=== PATIENT | male | born 1975 | race Caucasian/White ===

== ENCOUNTER 2016-10-22 13:38 | Inpatient (IN) | payer MEDICARE, OTHER ==
--- NOTE | ~2016-10-22 | HP ---
Unit #: [id number] #: [id number] Patient: NAEL DE JESUS [id number] [address] [place], [place] [address] [id number] I MR#: [id number] NAME: NAEL DE JESUS ROOM: 327 Age: 40 Sex: M Admission Date: 10/22/2016 : 1975 Attending Physician: Salo Smallwood M.D. Primary Care Physician: Chivo Guerrero M.D. HISTORY AND PHYSICAL HISTORY OF PRESENT ILLNESS A 40-year-old white male, alcoholic, tobacco use, COPD, hypertension, PSVT, CHF, nonischemic cardiomyopathy felt to be secondary to alcohol abuse, chronic hyponatremia. Seen in the emergency room with angioedema of the face felt to be secondary to lisinopril, which is discontinued. He was apparently switched to some other medicine, which remains unknown. He was then discharged home but came back on the with worsening symptoms, was given IV Solu-Medrol, IV Benadryl, IV Pepcid and admitted. Currently he states that he has really nonessential swelling, but he has gone into DT, which is common for the patient because he is a heavy alcoholic. Currently he has no other complaints. He is somewhat tremulous, is completely unaware of what blood pressure medications he is on at home other than lisinopril and Lopressor, Metoprolol, but his brother is supposed to bring his prescriptions in. ALLERGIES Lisinopril. MEDICATIONS Unknown. SURGICAL HISTORY Left hip replacement, right hip replacement. PAST MEDICAL HISTORY 1. Nonischemic cardiomyopathy with an ejection fraction of 20%, 2. CHF, systolic. 3. Chronic obstructive pulmonary disease. 4. Alcohol abuse. 5. History of alcohol withdrawal. 6. Tobacco use. 7. PSVT. 8. Hyponatremia. SOCIAL HISTORY He smokes 2 packs of cigarettes daily. Occasionally uses marijuana. Drinks beer daily but states that he drinks less than or equal to 12 beers a day. He apparently is on disability because of his hip surgery. PHYSICAL EXAMINATION GENERAL: On physical exam, he is awake, alert, oriented x3, somewhat tremulous, in no acute distress. ADMISSION VITALS: Afebrile. Pulse 102, respirations 20, blood pressure 155/99, O2 sat 97% on room air. Unit #: [id number] #: [id number] Patient: NAEL DE JESUS HEENT: Unremarkable, except for some mild facial edema, which is rather symmetrical and diffuse. NECK: Neck was supple without JVD, bruits, adenopathy or thyromegaly. CHEST: Diffusely decreased breath sounds with inspiratory and expiratory wheezes throughout. CARDIOVASCULAR: Heart has a regular rate and rhythm without any murmurs, rubs or gallops. ABDOMEN: Abdomen was soft, nondistended, nontender with positive bowel sounds and no hepatosplenomegaly. EXTREMITIES: Extremities showed no clubbing, cyanosis or edema. /RECTAL: Deferred. NEUROLOGIC: Exam is otherwise grossly intact. DIAGNOSTIC STUDIES LABORATORY VALUES: CBC is normal except for platelet count of 125,000 with an elevated MCV. CMP is normal except for sodium of 129, an AST of 160, an ALT of 128, alkaline phosphatase of 180, total protein of 8.5. PFTs were within normal limits. IMPRESSION 1. Angioedema secondary to EILEEN inhibitor. 2. Alcohol withdrawal. 3. Alcohol abuse. 4. Hypertension. 5. Tobacco use. 6. COPD. 7. Nonischemic cardiomyopathy. 8. PSVT. 9. Alcoholic hepatitis. 10. Thrombocytopenia. 11. Hyponatremia. PLAN DT withdrawal precautions and treatment. Resume antihypertensives. Clarify home meds. Continue IV steroids, IV Benadryl and H2 blockers and quickly wean as appropriate. Dictated by Kennedy Tomas/jaja TD: 10/23/2016 07:50 JOB #: [id number] HISTORY AND PHYSICAL Page 1 of 1 X Salo Smallwood MD X HISTORY AND PHYSICAL
--- NOTE | ~2016-10-22 | DS ---
Unit #: [id number] #: [id number] Patient: NAEL DE JESUS [id number] [address] [place], [place] [address] [id number] I MR#: [id number] NAME: NAEL DE JESUS ROOM: [facility] Age: 40 Sex: M Admission Date: 10/22/2016 : 1975 Discharge Date: 10/24/2016 Attending Physician: Salo Smallwood M.D. Primary Care Physician: Chivo Guerrero M.D. DISCHARGE SUMMARY PRINCIPAL DISCHARGE DIAGNOSES 1. Angioedema of the face, likely secondary to angiotensin-converting enzyme inhibitor. 2. Chronic hyponatremia. 3. Alcohol abuse with evidence of withdrawal. 4. Nonischemic cardiomyopathy. 5. Hypertension. 6. Tobacco use. 7. Chronic obstructive pulmonary disease. 8. History of paroxysmal supraventricular tachycardia. 9. Alcoholic hepatitis. 10. Transient thrombocytopenia. PROCEDURES None. CONSULTANTS None. REASON FOR HOSPITALIZATION/HOSPITAL COURSE The patient is a 40-year-old white male, alcoholic, who smokes, has COPD, hypertension, PSVT, CHF, nonischemic cardiomyopathy, chronic hyponatremia. Presented to the emergency room with angioedema of the face, felt to be secondary to lisinopril, which was discontinued. He was sent home with some steroids but soon came back to the emergency room with worsening symptoms and was admitted. He was started on IV Solu-Medrol, Benadryl and Pepcid and admitted. His angioedema quickly (1) . He had some sinus tachycardia and hypertension. His CBC on admission was normal except for a platelet count of 125, then on repeat this morning it was normal. His sodium was 129 and this morning is up to 131. He had some elevated LFTs consistent with alcoholic hepatitis. PFTs were checked and within normal limits. The patient's angioedema is resolved. His blood pressure is somewhat labile but can be addressed outpatient. DISCHARGE DIET He is on a regular diet. DISCHARGE MEDICATIONS 1. He is being discharged home with a Medrol Dosepak. 2. He is to take Benadryl 25 mg p.o. q.6 hours p.r.n. additional swelling. 3. He is also on Claritin 10 mg daily. 4. Toprol XL 50 mg daily. 5. Lasix 20 mg b.i.d. Unit #: [id number] #: [id number] Patient: NAEL DE JESUS 6. Aldactone 25 mg daily. NOTE: His HCTZ was discontinued because of hyponatremia, and of course, he is off his EILEEN inhibitor. FOLLOW-UP/RECOMMENDATION He will follow up with Dr. Guerrero in 1 week. He was encouraged again to discontinue his tobacco and alcohol use. Dictated by... Salo Smallwood M.D. LINNETTE/jaja TD: 10/24/2016 11:38 JOB #: [id number] DISCHARGE SUMMARY Page 1 of 1 X Salo Smallwood MD X DISCHARGE SUMMARY
[~2016-10-22 13:38] MED LIST: AL-MAG HYDROX-S30 M1 PO; ALDACTONE PO; ASPIRIN81 MG PO; ATENOLOL PO; CIPRO PO; COMBIVENT MININEB INH; CORDARONE200 M1 PO; DELTASONE20 MG; GUAIFENESIN600 M1 PO; KCL PO; LASIX PO; LASIX20 MG PO; LEVAQUIN PO; LISINOPRIL PO; LISINOPRIL10 MG PO; LOPRESSOR; MULTI VITAMIN1 EACH PO; NO MEDICATIONS; SIMVASTATIN10 MG PO; SINGULAIR PO; SYMBICORT INH; ZOCOR PO
[2016-10-22 14:21] LABS: BASOPHIL% 0.7 % (0-2.5); HEMATOCRIT 45.5 % (38.0-50.0); HEMOGLOBIN 15.5 gm/dL (13.0-16.0); LYMPHOCYTE# 0.4 X10e3 (1.0-3.5); LYMPHOCYTE% 13.9 % (17.0-45.0); MEAN CELL VOLUME 104.6 FL (83-96); MEAN CORPUSCULAR HEMOGLOBIN 35.7 PG (28-34); MEAN CORPUSCULAR HGB CONC 34.1 g/dL (30-36); MEAN PLATELET VOLUME 8.8 FL (6.5-11.5); MONOCYTE# 0.1 X10e3 (0-1.0); NEUTROPHIL# 2.6 X10e3 (1.5-7.1); NEUTROPHIL% 83.4 % (40-75); PLATELET COUNT 131 X10e3 (140-420); RED BLOOD COUNT 4.35 X10e (3.90-5.60); RED CELL DISTRIBUTION WIDTH 13.7 % (11.0-15.5); WHITE BLOOD COUNT 3.1 X10e3 (4.0-10.5)
[2016-10-22 14:22] LABS: DIFF IND NO
[2016-10-22 14:46] LABS: ALBUMIN SERUM 4.2 g/dL (3.5-5.0); BILIRUBIN, DIRECT 0.1 mg/dL (0.0-0.2); BILIRUBIN,INDIRECT 0.5 mg/dL (0.0-0.9); BILIRUBIN,TOTAL 0.6 mg/dL (0.2-2.0); BUN/CREATININE RATIO 12.5; CALCIUM SERUM 9.5 mg/dL (8.4-10.2); CREATININE SERUM 0.8 mg/dL (0.6-1.4); GLOM FILT RATE Estimated 112.6 mL/min (>60); POTASSIUM 3.8 mmol/L (3.5-5.1); PROTEIN TOTAL SERUM 8.4 g/dL (6.0-8.3)
[2016-10-23 05:39] LABS: BASOPHIL% 0.1 % (0-2.5); EOSINOPHIL% 0.2 % (0.0-7.0); HEMATOCRIT 45.8 % (38.0-50.0); HEMOGLOBIN 15.4 gm/dL (13.0-16.0); LYMPHOCYTE# 0.5 X10e3 (1.0-3.5); LYMPHOCYTE% 6.7 % (17.0-45.0); MEAN CELL VOLUME 104.8 FL (83-96); MEAN CORPUSCULAR HEMOGLOBIN 35.2 PG (28-34); MEAN CORPUSCULAR HGB CONC 33.6 g/dL (30-36); MEAN PLATELET VOLUME 9.8 FL (6.5-11.5); MONOCYTE# 0.4 X10e3 (0-1.0); MONOCYTE% 4.7 % (3.0-12.0); NEUTROPHIL# 6.8 X10e3 (1.5-7.1); NEUTROPHIL% 88.3 % (40-75); PLATELET COUNT 135 X10e3 (140-420); RED BLOOD COUNT 4.37 X10e (3.90-5.60); RED CELL DISTRIBUTION WIDTH 14.6 % (11.0-15.5)
[2016-10-23 05:43] LABS: DIFF IND NO; WHITE BLOOD COUNT 7.7 X10e3 (4.0-10.5)
[2016-10-23 06:17] LABS: THYROID STIMULATING HORMONE 0.85 uIU/ml (0.34-5.60)
[2016-10-23 06:22] LABS: ALBUMIN SERUM 4.2 g/dL (3.5-5.0); BILIRUBIN,TOTAL 0.8 mg/dL (0.2-2.0); BUN/CREATININE RATIO 13.75; CALCIUM SERUM 9.8 mg/dL (8.4-10.2); CREATININE SERUM 0.8 mg/dL (0.6-1.4); GLOM FILT RATE Estimated 112.6 mL/min (>60); POTASSIUM 3.9 mmol/L (3.5-5.1); PROTEIN TOTAL SERUM 8.1 g/dL (6.0-8.3)
[2016-10-23 06:23] LABS: FREE THYROXIN (T4) 0.61 ng/dL (0.58-1.64)
[2016-10-23] MEDS ORDERED: CLARITIN10 M3 PO (09:46)
[2016-10-23] MEDS ORDERED: ALDACTONE25 MG PO (09:46)
[2016-10-23] MEDS ORDERED: HYDROCHLOROTHIA25 MG PO (09:46)
[2016-10-23] MEDS ORDERED: METOPROLOL SUCC50 MG PO (09:47)
[2016-10-23] MEDS ORDERED: LASIX20 MG PO (09:47)
[2016-10-24 05:26] LABS: HEMATOCRIT 43.2 % (38.0-50.0); HEMOGLOBIN 14.5 gm/dL (13.0-16.0); MEAN CORPUSCULAR HEMOGLOBIN 35.3 PG (28-34); MEAN CORPUSCULAR HGB CONC 33.6 g/dL (30-36); MEAN PLATELET VOLUME 9.9 FL (6.5-11.5); RED BLOOD COUNT 4.12 X10e (3.90-5.60); WHITE BLOOD COUNT 8.2 X10e3 (4.0-10.5)
[2016-10-24 06:02] LABS: BUN/CREATININE RATIO 22.85; CALCIUM SERUM 9.7 mg/dL (8.4-10.2); CREATININE SERUM 0.7 mg/dL (0.6-1.4); GLOM FILT RATE Estimated 118.9 mL/min (>60); POTASSIUM 3.8 mmol/L (3.5-5.1)
[2016-10-24] MEDS ORDERED: BENADRYL25 M1 PO (07:41)
[2016-10-24] MEDS ORDERED: MEDROL DOSEPAK4 MG PO (07:42)
== END 2016-10-24 08:30 | disposition home or self-care (01) | DRG 916 ==
LOC: CED 13:38 → C3A PCU 17:13 → CEDOF 17:13 → CED 18:32 → CEDOF 18:32 → C3A PCU 18:34 → CEDOF 18:34 → C3A PCU 10-24 08:30
PROVIDERS: Emergency Medicine; Hospitalist; Internal Medicine
DX: T78.3XXA Angioneurotic edema, initial encounter (principal); I42.9 Cardiomyopathy, unspecified; I11.0 Hypertensive heart disease with heart failure; I50.20 Unspecified systolic (congestive) heart failure; E87.1 Hypo-osmolality and hyponatremia; D69.6 Thrombocytopenia, unspecified; F10.239 Alcohol dependence with withdrawal, unspecified; J44.9 Chronic obstructive pulmonary disease, unspecified; F17.210 Nicotine dependence, cigarettes, uncomplicated; K70.10 Alcoholic hepatitis without ascites
CPT/HCPCS: 36415; 80048; 80053; 80076; 84439; 84443; 85025; 85027; 86850; 86900; 86901; 94640; 94760; 96374; 96375; 99284; 99285; J1200; J2060; J2930